=== PATIENT | male | born 1955 | race Caucasian/White ===

== ENCOUNTER → 2019-09-16 | Outpatient (CLI) | payer MEDICARE ==
[~2019-09-16] MED LIST: CATHETER FLUSH 10 ML SYR IV PRN; HOLD METFORMIN - RECEIVED CONTRAST 20 ML VIAL IV SCH; IOHEXOL 350 MG/ML 100 ML (OMNIPAQUE 350) VIAL IV ONE; NS 100 ML (IVPB) BAG IV ONE
[2019-09-16 14:42] LABS: HEMATOCRIT 48 % (40-54); HEMOGLOBIN 16.5 G/DL (13.3-17.7); MEAN CORPUSCULAR HEMOGLOBIN 31 PG (25-34); MEAN CORPUSCULAR VOLUME 89 FL (80-99); WHITE BLOOD COUNT 10.3 10^3/uL (4.3-11.0)
[2019-09-16 14:43] LABS: BASOPHILS % (AUTO) 0 % (0-10); EOSINOPHILS # (AUTO) 0.1 10^3/uL (0.0-0.3); EOSINOPHILS % (AUTO) 1 % (0-10); LYMPHOCYTES # (AUTO) 2.2 X 10^3 (1.0-4.0); LYMPHOCYTES % (AUTO) 21 % (12-44); MEAN CORPUSCULAR HGB CONC 35 G/DL (32-36); MEAN PLATELET VOLUME 11.5 FL (7.4-10.4); MONOCYTES # (AUTO) 1.3 X 10^3 (0.0-1.0); MONOCYTES % (AUTO) 13 % (0-12); NEUTROPHILS # (AUTO) 6.7 X 10^3 (1.8-7.8); NEUTROPHILS % (AUTO) 65 % (42-75); PLATELET COUNT 174 10^3/uL (130-400); RED CELL DISTRIBUTION WIDTH 15.5 % (10.0-14.5)
[2019-09-16 15:13] LABS: ALANINE AMINOTRANSFERASE 25 U/L (0-55); ALBUMIN 4.1 GM/DL (3.2-4.5); ALKALINE PHOSPHATASE 61 U/L (40-136); BILIRUBIN,TOTAL 0.7 MG/DL (0.1-1.0); BUN/CREATININE RATIO 16; CALCIUM 9.4 MG/DL (8.5-10.1); CARBON DIOXIDE 22 MMOL/L (21-32); CHLORIDE 98 MMOL/L (98-107); CREATININE SERUM 0.91 MG/DL (0.60-1.30); GFR ESTIMATED > 60; GLUCOSE 95 MG/DL (70-105); POTASSIUM 4.1 MMOL/L (3.6-5.0); SODIUM 136 MMOL/L (135-145); TOTAL PROTEIN 8.2 GM/DL (6.4-8.2)
--- NOTE | 2019-09-16 17:42 | Diagnostic Imaging Report ---
PROCEDURE: CT neck soft tissue with contrast. TECHNIQUE: Multiple contiguous axial images were obtained through the neck after the administration of contrast. Auto Exposure Controls were utilized during the CT exam to meet ALARA standards for radiation dose reduction. INDICATION: Pain and swelling of the throat and bilateral submandibular regions. COMPARISON: No prior studies are available for comparison. FINDINGS: The visualized intracranial structures are unremarkable. Posterior nasopharynx is unremarkable. There is a soft tissue mass-like density in the left lateral pharyngeal mucosal space measuring approximately 3.0 x 2.2 cm. There is slight effacement of the left parapharyngeal fat planes. This extends towards the left base of tongue. Bilateral submandibular glands appear to be symmetric. There is a prominent left jugulodigastric lymph node measuring 16 mm x 11 mm. There are occasional smaller lymph nodes in the left neck as well. Right neck is unremarkable. Parotid glands appear to be symmetric bilaterally. Epiglottis and larynx are unremarkable. No thyroid mass is detected. IMPRESSION: There are findings suggestive of a left lateral oropharyngeal mass. Correlation with direct visualization is recommended. In addition, there is a mildly enlarged left jugulodigastric lymph node, indeterminate. Dictated by: Dictated on workstation # [id number]
== END ==
LOC: LAB FS 14:22
PROVIDERS: ATTEND Nurse Practitioner
DX: Z01.812 Encounter for preprocedural laboratory examination (principal); R07.0 Pain in throat; R22.0 Localized swelling, mass and lump, head; R22.1 Localized swelling, mass and lump, neck
CPT/HCPCS: 36415; 70491; 80053; 85025

== ENCOUNTER → 2019-10-01 | Outpatient (CLI) | payer MEDICARE ==
--- NOTE | 2019-10-01 14:09 | Diagnostic Imaging Report ---
INDICATION: Neck mass. Interrogation of the left neck was performed. There appears to be a lymph node just below the level of the left submandibular gland measuring approximately 1.4 x 0.9 x 1.36 cm. An area of heterogeneity inferior to this most likely is musculature. No other discrete mass is seen. The lymph nodes noted on CT in the jugulodigastric region are not as well appreciated by ultrasound. IMPRESSION: 1. Prominent left neck lymph node, as described. Dictated by: Dictated on workstation # [id number]
== END ==
LOC: RAD 12:09
DX: K11.8 Other diseases of salivary glands (principal); R22.1 Localized swelling, mass and lump, neck
CPT/HCPCS: 76536